=== PATIENT | female | born 1955 | race Caucasian/White ===

== ENCOUNTER 2018-06-09 08:02 | Inpatient (IN) | payer OTHER ==
[~2018-06-09] VITALS: Ht 166.4 cm; Wt 75.4 kg
--- NOTE | 2018-06-09 08:28 | NUR ---
patient MIKHAIL ARIZA from a weekly rental room, She reports falling sunday and being down for 2 days, and she was able to get to her phone today to call 911. patient showing some slurred speech and increased weakness in Left extremities, these are new signs. MD Mendenhall at bedside now
[2018-06-09 08:43] LABS: BASOPHILS # (AUTO) 0.01 x10^3/uL (0-0.1); BASOPHILS % (AUTO) 0 % (0-1); EOSINOPHILS # (AUTO) 0.26 x10^3/uL (0-0.4); EOSINOPHILS % (AUTO) 3 % (1-7); LYMPHOCYTES # (AUTO) 2.06 x10^3/uL (1-3.4); LYMPHOCYTES % (AUTO) 25 % (22-44); MD NO; MEAN CORPUSCULAR HGB CONC 33.6 g/dL (32.4-35.8); MEAN CORPUSCULAR VOLUME 92.3 fL (80-100); MEAN PLATELET VOLUME 7.6 fL (7.4-10.4); MONOCYTES # (AUTO) 0.37 x10^3/uL (0.2-0.8); MONOCYTES % (AUTO) 5 % (2-9); NEUTROPHILS # (AUTO) 5.42 x10^3/uL (1.8-6.8); NEUTROPHILS % (AUTO) 67 % (42-75); PLATELET COUNT 297 x10^3/uL (130-400); RED BLOOD COUNT 4.68 x10^6/uL (3.82-5.3); RED CELL DISTRIBUTION WIDTH 13.9 % (9.6-15.2)
[2018-06-09 08:55] LABS: ALANINE AMINOTRANSFERASE 27 U/L (12-78); ALBUMIN 3.1 g/dL (3.4-5.0); ANION GAP 8 mmol/L (5-15); CALCIUM 8.4 mg/dL (8.5-10.1); CHLORIDE 110 mmol/L (98-107)
[2018-06-09 09:00] LABS: ALKALINE PHOSPHATASE 69 U/L (45-117); BILIRUBIN,TOTAL 0.8 mg/dL (0.2-1.0); CREATINE KINASE, TOTAL 296 U/L (26-192); CREATININE 0.56 mg/dL (0.55-1.02); TOTAL PROTEIN 6.5 g/dL (6.4-8.2); TROPONIN I < 0.015 ng/mL (0.000-0.045)
--- NOTE | 2018-06-09 09:22 | NUR ---
patient safe in [facility], no acute changes reported, VSS remain stable on room air, no pain, bed rails up, call light in reach, bed in low position
[2018-06-09] MEDS ORDERED: ONDANSETRON ODT 4 MG PO PRN (11:30)
[2018-06-09] MEDS ORDERED: KETOROLAC 30 MG/1 ML IV PRN (11:30)
[2018-06-09] MEDS ORDERED: DOCUSATE 100 MG CAPSULE PO PRN (11:30)
[2018-06-09] MEDS ORDERED: BISACODYL 10 MG SUPP PR PRN (11:30)
[2018-06-09] MEDS ORDERED: hydrALAzine 20 MG/ML, 1ML IVPush PRN (11:30)
[2018-06-09] MEDS ORDERED: ENALAPRILAT 1.25 MG/ML, 2ML IV PRN (11:30)
[2018-06-09] MEDS ORDERED: LIDODERM 5% PATCH TD PRN (11:30)
[2018-06-09] MEDS ORDERED: ONDANSETRON 2MG/ML, 2ML IVPush PRN (11:30)
[2018-06-09] MEDS ORDERED: ACETAMINOPHEN 325 MG TABLET PO PRN (11:30)
--- NOTE | 2018-06-09 11:45 | NUR ---
patient straight cathetered for 550 mL of Nilsa clear urine, sample walked to lab
[2018-06-09 11:52] LABS: HCT (SEDRATE) 43.2 % (34.6-47.8)
[2018-06-09 11:54] LABS: MICROSCOPIC NOT IND
[2018-06-09 11:58] LABS: CULTURE INDICATED? NO
[2018-06-09 12:03] LABS: AMPHETAMINE SCREEN, URINE Negative (Negative); BARBITURATE SCREEN, URINE Negative (Negative); BENZODIAZEPINE SCREEN, URINE Negative (Negative); CANNABINOID SCREEN, URINE Negative (Negative); COCAINE SCREEN, URINE Negative (Negative); METHADONE SCREEN, URINE Negative (Negative); OPIATE SCREEN, URINE Negative (Negative)
--- NOTE | 2018-06-09 12:36 | NUR ---
REPORT to sox analyst Erin, all questions answered, patient updated of transfer plan, no acute changes, vss on room air, RTG status now.
[2018-06-09 12:40] LABS: HEMOGLOBIN A1C 5.4 % (4.2-6.3)
[2018-06-09] MEDS ORDERED: ASPIRIN 81 MG TABLET CHEW ONE (12:42)
[2018-06-09] MEDS: ASPIRIN 81 MG TABLET CHEW PO/NG SCH (12:45)
--- NOTE | 2018-06-09 12:46 | NUR ---
patient given chewable aspirins per MAR, following an RN Dysphagia screen at bedside, no s/s of aspiration
[2018-06-09] MEDS: SODIUM CHLORIDE 0.9% 1,000 ML IV SCH (13:19)
[2018-06-09 14:00] VITALS: BP 113/73
[2018-06-09 15:44] VITALS: BP 113/73
[2018-06-09] MEDS ORDERED: GADOBUTROL 7.5 MMOL/7.5 ML PFS ONE (18:36)
[2018-06-09] MEDS: ATORVASTATIN 80 MG TABLET PO SCH (20:43)
[2018-06-09 20:54] VITALS: BP 121/78
[2018-06-10 01:12] VITALS: BP 117/72
[2018-06-10] MEDS: SODIUM CHLORIDE 0.9% 1,000 ML IV SCH ×2 (01:47→12:47)
[2018-06-10 06:24] LABS: BASOPHILS # (AUTO) 0.03 x10^3/uL (0-0.1); BASOPHILS % (AUTO) 0 % (0-1); EOSINOPHILS # (AUTO) 0.34 x10^3/uL (0-0.4); EOSINOPHILS % (AUTO) 5 % (1-7); LYMPHOCYTES # (AUTO) 2.37 x10^3/uL (1-3.4); LYMPHOCYTES % (AUTO) 35 % (22-44); MD NO; MEAN CORPUSCULAR HEMOGLOBIN 31.8 pg (27.0-34.8); MEAN CORPUSCULAR HGB CONC 34.3 g/dL (32.4-35.8); MEAN CORPUSCULAR VOLUME 92.7 fL (80-100); MEAN PLATELET VOLUME 7.8 fL (7.4-10.4); MONOCYTES # (AUTO) 0.52 x10^3/uL (0.2-0.8); MONOCYTES % (AUTO) 8 % (2-9); NEUTROPHILS # (AUTO) 3.62 x10^3/uL (1.8-6.8); NEUTROPHILS % (AUTO) 53 % (42-75); PLATELET COUNT 280 x10^3/uL (130-400); RED BLOOD COUNT 4.19 x10^6/uL (3.82-5.3); RED CELL DISTRIBUTION WIDTH 14.3 % (9.6-15.2)
[2018-06-10 06:39] LABS: CHLORIDE 111 mmol/L (98-107)
[2018-06-10 06:53] LABS: ALANINE AMINOTRANSFERASE 21 U/L (12-78); ALBUMIN 2.7 g/dL (3.4-5.0); ALKALINE PHOSPHATASE 59 U/L (45-117); ANION GAP 8 mmol/L (5-15); BILIRUBIN,TOTAL 0.7 mg/dL (0.2-1.0); CALCIUM 8.2 mg/dL (8.5-10.1); CHOL/HDL RATIO 4.4; CHOLESTEROL, TOTAL 154 mg/dL (140-239); CREATINE KINASE, TOTAL 224 U/L (26-192); CREATININE 0.48 mg/dL (0.55-1.02); FREE T4 (FREE THYROXINE) 1.14 ng/dL (0.76-1.46); HDL CHOL % 23 % (28-40); HDL CHOLESTEROL (DIRECT) 35 mg/dL (40-60); LDL CHOLESTEROL,CALCULATED 98 mg/dL (54-169); LDL/HDL RATIO 2.8 (0.5-3.0); TOTAL PROTEIN 5.8 g/dL (6.4-8.2); TRIGLYCERIDES 105 mg/dL (50-200); VLDL CHOLESTEROL 21 mg/dL (0-25)
[2018-06-10 06:57] VITALS: BP 112/71
[2018-06-10] MEDS: ASPIRIN 81 MG TABLET CHEW PO/NG SCH (08:22)
[2018-06-10] MEDS: SENNA/DOCUSATE TABLET PO SCH (08:22)
[2018-06-10 13:11] VITALS: BP 119/65
[2018-06-10] MEDS ORDERED: THIAMINE 100MG TABLET ONE (16:31)
[2018-06-10] MEDS ORDERED: FOLIC ACID 1 MG TABLET ONE (16:31)
[2018-06-10] MEDS: FOLIC ACID 1 MG TABLET PO SCH (16:34)
[2018-06-10] MEDS: THIAMINE 100MG TABLET PO SCH (16:37)
[2018-06-10 19:58] VITALS: BP 144/76
[2018-06-10] MEDS: ATORVASTATIN 80 MG TABLET PO SCH (20:12)
[2018-06-10 23:55] VITALS: BP 116/72
[2018-06-11 05:44] LABS: BASOPHILS # (AUTO) 0.04 x10^3/uL (0-0.1); BASOPHILS % (AUTO) 1 % (0-1); EOSINOPHILS # (AUTO) 0.29 x10^3/uL (0-0.4); EOSINOPHILS % (AUTO) 4 % (1-7); LYMPHOCYTES # (AUTO) 2.72 x10^3/uL (1-3.4); LYMPHOCYTES % (AUTO) 37 % (22-44); MD NO; MEAN CORPUSCULAR HEMOGLOBIN 31.8 pg (27.0-34.8); MEAN CORPUSCULAR HGB CONC 34.4 g/dL (32.4-35.8); MEAN CORPUSCULAR VOLUME 92.4 fL (80-100); MEAN PLATELET VOLUME 7.8 fL (7.4-10.4); MONOCYTES # (AUTO) 0.55 x10^3/uL (0.2-0.8); MONOCYTES % (AUTO) 8 % (2-9); NEUTROPHILS # (AUTO) 3.76 x10^3/uL (1.8-6.8); NEUTROPHILS % (AUTO) 51 % (42-75); PLATELET COUNT 305 x10^3/uL (130-400); RED BLOOD COUNT 4.35 x10^6/uL (3.82-5.3); RED CELL DISTRIBUTION WIDTH 13.4 % (9.6-15.2)
[2018-06-11 05:49] LABS: ANION GAP 8 mmol/L (5-15); CALCIUM 8.5 mg/dL (8.5-10.1); CHLORIDE 109 mmol/L (98-107); CREATININE 0.46 mg/dL (0.55-1.02)
[2018-06-11 07:10] VITALS: BP 127/72
[2018-06-11] MEDS: SENNA/DOCUSATE TABLET PO SCH (08:19)
[2018-06-11] MEDS: ASPIRIN 81 MG TABLET CHEW PO/NG SCH (08:19)
[2018-06-11] MEDS: FOLIC ACID 1 MG TABLET PO SCH (08:19)
[2018-06-11] MEDS: THIAMINE 100MG TABLET PO SCH (08:19)
[2018-06-11] MEDS ORDERED: SODIUM CHLORIDE 0.9% 1,000 ML IV SCH (11:12)
[2018-06-11 13:13] VITALS: BP 128/74
[2018-06-11] MEDS ORDERED: THIA100T67 PO (14:19)
[2018-06-11] MEDS ORDERED: FOLI-17 PO (14:19)
[2018-06-11] MEDS ORDERED: ATOR-2 PO (14:19)
[2018-06-11] MEDS ORDERED: ASPI-515 PO/NG (14:19)
== END 2018-06-11 18:32 | DRG 69 ==
LOC: ED 09:57 → EDIP 10:28 → 4WST 12:57
PROVIDERS: ADMIT Hospitalist; ATTEND Hospitalist
DX: G45.9 Transient cerebral ischemic attack, unspecified (principal); E43 Unspecified severe protein-calorie malnutrition; I50.30 Unspecified diastolic (congestive) heart failure; I69.354 Hemiplegia and hemiparesis following cerebral infarction affecting left non-dominant side; E88.09 Other disorders of plasma-protein metabolism, not elsewhere classified; Z66 Do not resuscitate; W01.0XXA Fall on same level from slipping, tripping and stumbling without subsequent striking against object, initial encounter; J45.909 Unspecified asthma, uncomplicated; M21.371 Foot drop, right foot; Z68.27 Body mass index [BMI] 27.0-27.9, adult; Z88.1 Allergy status to other antibiotic agents; Z98.51 Tubal ligation status; Y93.89 Activity, other specified; Y92.098 Other place in other non-institutional residence as the place of occurrence of the external cause; Y99.8 Other external cause status
CPT/HCPCS: 36415; 70450; 70553; 71045; 80048; 80053; 80061; 80307; 81003; 82040; 82550; 82607; 83036; 83735; 84100; 84439; 84443; 84484; 85025; 85651; 93005; 93306; 93880; 99285; A9585; G0378; J7030

== ENCOUNTER 2018-07-25 19:59 | Emergency (ER) | payer OTHER ==
[~2018-07-25] VITALS: Ht 167.6 cm; Wt 70.5 kg
[~2018-07-25 19:59] MED LIST: ASPI-515 PO/NG; ATOR-2 PO; FOLI-17 PO; THIA100T67 PO
[2018-07-25] MEDS ORDERED: LIDOCAINE-MPF 1%, 5ML ONE (20:52)
--- NOTE | 2018-07-25 20:59 | NUR ---
REPORT RECEIVED FROM STERLING LYONS. OBDULIO KNOTT AT BEDSIDE FOR SUTURE.
[2018-07-25] MEDS ORDERED: LIDOCAINE 1%, 50ML INFIL ONE (21:00)
--- NOTE | 2018-07-25 22:00 | NUR ---
wound dressed by EDT. pt is a&ox4, pt has 5/5 strength to all extremities with exception to left arm which has mild weakness, this is baseline per pt and per report due to hx cva. pupils equal, round and reactive, face symmetrical, no drift. vss. This RN arranging transport home to assisted living facility with assistance of devulcanizer charger.
[2018-07-25 22:48] VITALS: BP 133/75
--- NOTE | 2018-07-25 22:49 | NUR ---
wound dressed by edt. pt's assisted living called ([facility] staff state they will be available to assist pt out of cab into apartment. pt given dc instructions and script. pt uses walker to mobilize at baseline, walker not brought with pt to [facility]. pt transferred easily from bed to wheelchair and wheeled to dc. pt provided with cab voucher home. staff at pt's assisted living notified pt is discharging home and will arrive shortly. pt given dc instructions and script. pt educated regarding suture/wound care and follow up instructions. pt a&ox4, resps even and unlabored, nadn at mi.
== END 2018-07-25 22:49 | disposition home or self-care (01) ==
LOC: ED 22:15
DX: S01.81XA Laceration without foreign body of other part of head, initial encounter (principal); Z86.73 Personal history of transient ischemic attack (TIA), and cerebral infarction without residual deficits; W19.XXXA Unspecified fall, initial encounter; Y93.89 Activity, other specified; Y92.480 Sidewalk as the place of occurrence of the external cause; Y99.8 Other external cause status
CPT/HCPCS: 12052; 99284

== ENCOUNTER 2018-10-10 06:13 | Emergency (ER) | payer OTHER ==
[~2018-10-10] VITALS: Ht 167.6 cm; Wt 70.0 kg
--- NOTE | 2018-10-10 06:28 | NUR ---
PT AWAITING CT SCAN AND THEN WOUND WILL BE CLEANED AND CLOSED.
[2018-10-10] MEDS ORDERED: DIPH,PERTUSS(ACELL),TET VAC/PF 0.5 ML IM-VACC ONE ×2 (06:30→07:35)
--- NOTE | 2018-10-10 07:48 | NUR ---
REPORT RECEIVED FROM FLAVIA RN. PT AAO X 4, SPEECH DELAYED R/T HX STROKE WITH LEFT SIDED WEAKNESS. VSS. PT GIVEN TETANUS SHOT PER MD ORDER. IRRIGATION AND SILVERIO AT BEDSIDE. SIDERAILS X [address], PT WARM WITH BLANKETS, CALL LIGHT WITHIN REACH, ROOM WELL LIT, DENIES PAIN, ALL NEEDS MET AT THIS TIME.
--- NOTE | 2018-10-10 08:07 | NUR ---
PT'S HEAD WOUND IRRIGATED WITH THIS RN AND TECH. PA NOTIFIED. PA TO BEDSIDE FOR SILVERIO. PT PROVIDED WARM BLANKETS FOR COMFORT.
[2018-10-10 08:09] VITALS: BP 144/83
--- NOTE | 2018-10-10 08:43 | NUR ---
THIS RN SPOKE WITH THE [facility] CEMENT MIXER DRIVER, PT TO GO BACK WITH [facility]SP[facility] BEFORE 10 AM. D/C INSTRUCTIONS REVIEWED WITH PT.
--- NOTE | 2018-10-10 09:05 | NUR ---
THIS RN SPOKE WITH [place] AT THE [facility] TO GIVE REPORT. PER [place] PT EXPERIENCES DELUSIONS AT TIMES. THIS RN NOTIFIED [place] THAT PT HAS 3 SILVERIO IN POSTERIOR HEAD AND THOSE CAN BE REMOVED IN 10 DAYS. TRANSPORT VERIFIED AT [address] [facility] [employer] BUS.
--- NOTE | 2018-10-10 09:25 | NUR ---
PT REQUESTING TO BE PLACED IN CHAIR, THIS RN AND TECH ASSISTED PT TO CHAIR. D/C INSTRUCTIONS REVIEWED, ALL QUESTIONS ANSWERED. PT VERBALIZED UNDERSTANDING.
--- NOTE | 2018-10-10 10:20 | NUR ---
PT PROVIDED WITH BREAKFAST TRAY WHICH SITTING IN CHAIR. AWAITING RIDE HOME FOR D/C. THIS RN PHONED [facility] TO CHECK STATUS, WILL CONTACT ER BACK WHEN THEY HAVE AN ESTIMATED TIME.
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
--- NOTE | 2018-10-10 12:45 | NUR ---
THIS RN GIVING REPORT TO MIGUEL ANGEL RN. [employer] ARRIVED TO SPEAK WITH PT ABOUT [facility]ERRING [facility].
--- NOTE | 2018-10-10 13:11 | NUR ---
Patient DC'd with [facility].
== END 2018-10-10 13:12 | disposition home or self-care (01) ==
LOC: ED 09:07
DX: S01.01XA Laceration without foreign body of scalp, initial encounter (principal); S06.9X1A Unspecified intracranial injury with loss of consciousness of 30 minutes or less, initial encounter; Z86.73 Personal history of transient ischemic attack (TIA), and cerebral infarction without residual deficits; Z88.1 Allergy status to other antibiotic agents; W19.XXXA Unspecified fall, initial encounter; Y93.89 Activity, other specified; Y92.009 Unspecified place in unspecified non-institutional (private) residence as the place of occurrence of the external cause; Y99.8 Other external cause status
CPT/HCPCS: 12032; 70450; 72125; 90471; 90715